=== PATIENT | female | born 1985 | race Caucasian/White ===

== ENCOUNTER 2016-08-27 16:45 | Inpatient (IN) | payer OTHER ==
--- NOTE | ~2016-08-27 | DS ---
Unit #: [id number] #: [id number] Patient: JACOB OKEEFE [id number] [facility] [address] [place] [address] [id number] MR#: [id number] NAME: JACOB OKEEFE ROOM: [facility] Age: 31 Sex: F Admission Date: 08/27/2016 : 1985 Discharge Date: Attending Physician: Heena Jenkins M.D. Primary Care Physician: Primary Care Physician No DISCHARGE SUMMARY IDENTIFYING DATA Ms. Okeefe is a 31-year-old single white female who is a resident of [place], [place] and was transferred to us from [facility] on a voluntary basis. DISCHARGE DIAGNOSES Psychiatric: Opioid dependence, moderate and acute withdrawals; benzodiazepine dependence, moderate and acute withdrawals; methamphetamine dependence, moderate. Medical: Hypothyroidism. Stressors: Moderate psychosocial stressors. HISTORY OF PRESENT ILLNESS Please see initial psychiatric evaluation for details. PAST PSYCHIATRIC HISTORY Please see initial psychiatric evaluation for details. PAST MEDICAL HISTORY Please see initial psychiatric evaluation for details. HOSPITAL COURSE The patient was admitted to the adult chemical dependency and psychiatric unit at [facility] abdoul Melissa and was oriented to the hospital environment. Routine p.r.n. medications were initiated, and she was started back on her home medications and detox protocol was initiated. She was noticed to be very withdrawn and seclusive to herself and was staying in her bed a lot and was having difficulty doing activities of daily living including her personal hygiene and as such, detox was maintained. When I met with the patient on 08/30/2016, she stated that she still has not been feeling good, was not comfortable leaving the hospital, and as such, it was decided that she will be kept in the hospital for the weekend and as such, medications were maintained and she slowly started showing a therapeutic response with improvement in depression and anxiety and was able to come out of the detox without any complications and as such, it was decided that she will be discharged home and will continue treatment on an outpatient basis. DISCHARGE MEDICATIONS Seroquel 50 mg at bedtime for mood disorder. DISCHARGE CONDITION Stable. Unit #: [id number] #: [id number] Patient: JACOB OKEEFE PROGNOSIS Fair. Dictated by... Heena Jenkins M.D. IAA/modl TD: 09/02/2016 06:32 JOB #: [id number] DISCHARGE SUMMARY Page 1 of 1 X Heena Jenkins MD DISCHARGE SUMMARY
--- NOTE | ~2016-08-27 | PN ---
Unit #: [id number] #: [id number] Patient: JACOB OKEEFE [id number] [facility] [address] [place] [address] [id number] I MR#: [id number] NAME: JACOB OKEEFE ROOM: [facility] Age: 31 Sex: F Admission Date: 08/27/2016 : 1985 Attending Physician: Heena Jenkins M.D. Admitting Physician: Heena Jenkins M.D. Primary Care Physician: Primary Care Physician Kassandra LEVI NOTES DATE OF SERVICE 09/01/2016 DISCUSSION Ms. Okeefe is a 31-year-old white female who was seen today. Chart was reviewed and case was discussed with the staff who reports the patient has been anxious, withdrawn, and has been complaining of significant anxiety and as such p.r.n. Vistaril had to be initiated. Meanwhile, she has been cooperative with treatment recommendations and has been taking the medications and tolerating them fairly well. MENTAL STATUS EXAMINATION Young white female who is casually dressed with fair personal hygiene, appears to be in no acute distress or discomfort. The patient was awake and alert with intact orientation. Her mood is anxious with congruent affect. She denies any suicidal or homicidal ideation. Her insight and judgment remain slightly impaired. TREATMENT PLAN 1. We will continue her on her current treatment protocol. We will monitor her response to the medications and make further adjustments as needed. 2. We will continue to follow up. Dictated by... Heena Jenkins M.D. IAA/bzg TD: 09/02/2016 05:21 JOB #: [id number] Unit #: [id number] #: [id number] Patient: JACOB OKEEFE PROGRESS NOTES Page 1 of 1 X Heena Jenkins MD PROGRESS NOTE
--- NOTE | ~2016-08-27 | PN ---
Unit #: [id number] #: [id number] Patient: JACOB BASS [id number] [facility] [address] [place] [address] [id number] I MR#: [id number] NAME: JACOB BASS ROOM: [facility] Age: 31 Sex: F Admission Date: 08/27/2016 : 1985 Attending Physician: Heena Jenkins M.D. Admitting Physician: Heena Jenkins M.D. Primary Care Physician: Primary Care Physician Kassandra ÁCRDENAS PROGRESS NOTES DATE 08/30/2016 DISCUSSION Ms. Bass is a 31-year-old white female who was seen today and chart was reviewed and case was discussed with the staff. She has been anxious, withdrawn and rather seclusive to herself. Meanwhile, she has been cooperative with treatment recommendations and has been taking medications and tolerating them fairly well with no reported side effects. MENTAL STATUS EXAMINATION Young white female who was casually dressed with fair personal hygiene and appears to be in no acute distress or discomfort. She was awake and alert on interaction with intact orientation. Her mood was anxious with congruent affect. Her speech is slow and goal-directed. She denies any suicidal or homicidal ideations and also denies any auditory or visual hallucinations. Her insight and judgement remains slightly impaired. TREATMENT PLAN 1. Will continue on current medications and treatment protocol. Will monitor her response to the medications and make further adjustments as needed. 2. Will continue to follow up. Dictated by... Claudia Stoner/trisha TD: 08/30/2016 19:39 JOB #: [id number] Unit #: [id number] #: [id number] Patient: JACOB BASS PROGRESS NOTES Page 1 of 1 X Heena Jenkins MD X PROGRESS NOTE
--- NOTE | ~2016-08-27 | PN ---
Unit #: [id number] #: [id number] Patient: JACOB BASS [id number] [facility] [address] [place] [address] [id number] MR#: [id number] NAME: JACOB BASS ROOM: [facility] Age: 31 Sex: F Admission Date: 08/27/2016 : 1985 Attending Physician: Heena Jenkins M.D. Admitting Physician: Heena Jenkins M.D. Primary Care Physician: Primary Care Physician Kassandra LEVI NOTES DATE OF SERVICE 08/29/2016 DISCUSSION Ms. Bass is a 31-year-old white female with substance abuse and mood disorder who was seen today. Chart was reviewed and case was discussed with the staff. She has been doing fairly well and was rather comfortable in her bed and stated that she feels her detox is going smooth, that she has been taking the medications and tolerating them fairly well without any complications. She stated that she would like her nicotine patch to be increased. She stated that she was smoking up to 2 packs of cigarettes (1) __ currently at 14 mg of nicotine patch a day. MENTAL STATUS EXAMINATION Young white female who is casually dressed with fair personal hygiene, appears to be in no acute distress or discomfort. She was awake and alert on interaction with intact orientation. Her mood is anxious with congruent affect. She denies any suicidal or homicidal ideations and also denies any auditory or visual hallucinations. Her insight and judgment remain slightly impaired. TREATMENT PLAN 1. We will continue her on her current medications and treatment protocol. We will monitor her response to the medications and make further adjustments as needed. 2. We will continue to follow up. Dictated by... Claudia Stoner/elena TD: 08/29/2016 07:35 JOB #: [id number] Unit #: [id number] #: [id number] Patient: JACOB BASS PROGRESS NOTES Page 1 of 1 X Heena Jenkins MD PROGRESS NOTE
--- NOTE | ~2016-08-27 | PA ---
Unit #: [id number] #: [id number] Patient: JACOB OKEEFE [id number] [facility] [address] [place] [address] [id number] MR#: [id number] NAME: JACOB OKEEFE ROOM: [facility] Age: 31 Sex: F Admission Date: 08/27/2016 : 1985 Date of Assessment: Attending Physician: Heena Jenkins M.D. Admitting Physician: Heena Jenkins M.D. Primary Care Physician: Primary Care Physician No PSYCHIATRIC ASSESSMENT DATE OF SERVICE 08/28/2016. IDENTIFYING DATA Ms. Okeefe is a 31-year-old single white female, who is a resident of [place], [place], and was transferred to us from [facility] on a voluntary basis. CHIEF COMPLAINT "I want help to get off drugs." HISTORY OF PRESENT ILLNESS Ms. Okeefe is a 31-year-old white female with history of substance abuse and dependence, who was self-referred to the hospital. Reports that she needs help in order to get off drugs and she has been using everything and reports her drug of choice is methamphetamine and that she is here with her boyfriend who also wants to get help and the patient does report increasing depression, anxiety, poor social support system, psychomotor retardation, and reports that she feels low all the time and reports hopelessness and helplessness about her current situation. The patient's boyfriend reports that she talked about dying after the of her son and was given medication for depression and she stopped taking it because it did not get right. The patient denies any current suicidal ideations, intent, or plan. Her COWS score was 15, indicating significant opioid detox and as such, recommendation for inpatient level of care for safety and stabilization was made. SUBSTANCE ABUSE HISTORY The patient reports history of experimentation with alcohol, cannabis, opioids, methamphetamine, and benzodiazepines. Reports currently she has been using one and half g of methamphetamine, 1 to 2 g of opioids a day and has been using at that rate for few years. PAST PSYCHIATRIC HISTORY The patient has not had any prior inpatient or outpatient psychiatric treatment. Review of the medical records indicate currently she is not active in treatment program, is not seeing a psychiatrist, and is not taking any psychotropic medications. PAST MEDICAL HISTORY The patient's medical history is significant for hypothyroidism. ALLERGIES Unit #: [id number] #: [id number] Patient: JACOB OKEEFE No known medication allergies. PERSONAL AND SOCIAL HISTORY A 31-year-old white female, who reports that she lives at home with her boyfriend and her 3 daughters and has fairly decent social support system. MENTAL STATUS EXAMINATION Young white female who was casually dressed with fair personal hygiene, appears to be in no acute distress or discomfort. She was awake and alert on interaction with intact orientation to time, place, and person. Her mood was anxious and depressed with a congruent affect. Her speech was slow and restricted in content. Her thought processes were disorganized with some looseness of associations. She denies any suicidal or homicidal ideations and also denies any auditory or visual hallucinations. Her insight and judgment remain significantly impaired. DIAGNOSTIC IMPRESSION Psychiatric: Opioid dependence, moderate and acute withdrawals; benzodiazepine dependence, moderate and acute withdrawals; methamphetamine dependence, moderate. Medical: Hypothyroidism. Stressors: Moderate psychosocial stressors. TREATMENT PLAN 1. The patient has presented with a history of substance abuse and mood disorder, and has been decompensating and will need inpatient hospitalization for detoxification, safety, and stabilization. We will start her back on her home medications and detox protocol was initiated as well. 2. Supportive therapy was provided to the patient. 3. Safe, structured, and nourishing environment will be provided. ESTIMATED LENGTH OF STAY 5 to 7 days. ABILITY TO HELP SELF Limited. WILLINGNESS TO HELP SELF The patient appears to be willing to help self. STRENGTHS 1. Communicative. 2. Cooperative. PROBLEMS 1. Chronic dysphoric symptoms. 2. Chronic chemical dependency. 3. Poor social support system. DISCHARGE CRITERIA This will be contingent upon the patient's ability to go through detox without having any significant withdrawal symptoms as well as her ability to stay safe to herself, particularly after discharge from the hospital. Dictated by... Heena Jenkins M.D. Unit #: [id number] #: [id number] Patient: JACOB OKEEFE IAA/modl TD: 08/28/2016 06:44 JOB #: [id number] PSYCHIATRIC ASSESSMENT Page 1 of 1 X Heena Jenkins A MD X PSYCHIATRIC ASSESSMENT
--- NOTE | ~2016-08-27 | HP ---
Unit #: [id number] #: [id number] Patient: KATJA OKEEFE [id number] [place] [address] [id number] MR#: [id number] NAME: KATJA OKEEFE ROOM: [facility] Age: 31 Sex: F Admission Date: 08/27/2016 : 1985 Attending Physician: Heena Jenkins M.D. Admitting Physician: Heena Jenkins M.D. Primary Care Physician: Primary Care Physician No HISTORY AND PHYSICAL HISTORY OF PRESENT ILLNESS Katja is a 31 year old admitted to [facility] because of her polysubstance abuse which includes methamphetamine, opioids and benzodiazepines. PAST MEDICAL HISTORY 1. Long history of poly-illicit substance abuse. 2. Secondary hypothyroidism. PAST SURGICAL HISTORY Total thyroidectomy. ALLERGIES No known drug allergies. SOCIAL HISTORY Smokes 1 pack per day. Drinks alcohol rarely. Admits to history of poly-illicit substance abuse. FAMILY HISTORY Medically noncontributory. REVIEW OF SYSTEMS CONSTITUTIONAL: No fever or chills. HEENT: Denies any sore throat, ear pain or runny nose. CARDIOVASCULAR: Denies chest pain, irregular heart rhythm or palpitations. CHEST: Denies shortness of breath or cough. No hemoptysis. GASTROINTESTINAL: Denies nausea, vomiting, diarrhea or chronic constipation. ENDOCRINE: Denies history of increased thirst or urination. No recent significant weight loss or gain. GENITOURINARY: Denies dysuria, frequency, or hematuria. SKIN: Denies any rashes. HEMATOLOGIC: Denies history of increased bleeding or bruising. MUSCULOSKELETAL: Denies any hot, swollen joints. No generalized muscle pain. NEUROLOGIC: Denies problems with vision or speech. No frequent, severe headaches. No numbness, tingling or weakness in any extremities. Denies loss of bladder or bowel control. CURRENT MEDICATIONS 1. Detox protocol. 2. Synthroid 0.05 mg daily. Unit #: [id number] #: [id number] Patient: KATJA OKEEFE PHYSICAL EXAMINATION GENERAL: Alert, well-nourished, in no apparent distress. VITAL SIGNS: Blood pressure 100/60, heart rate 70, respirations 16, temperature 98.6. WEIGHT: 175. HEIGHT: 5 feet 5 inches. SKIN: Warm and dry without rash or lesion. HEENT: Normocephalic. TMs not viewed. Oral and nasal passages clear. Conjunctivae clear. PERRLA. EOMs intact. NECK: Supple without lymphadenopathy or thyromegaly. HEART: Regular rate and rhythm without murmur. LUNGS: Clear. ABDOMEN: Soft, nontender. : Not done. EXTREMITIES: No evidence of cyanosis, clubbing or edema. Moves all without focal deficit. NEUROLOGICAL: Grossly within normal limits. Cranial Nerves: II: Visual canela are intact. III, IV AND : Extraocular movements are intact. Pupils are equal, round and reactive to light. V: Facial sensation is grossly normal. VII: Facial movements and expression are normal. VIII: Auditory acuity grossly intact. IX, X: Uvula is midline. Phonation is normal. XI: Patient shrugs shoulders and turns head normally. XII: Tongue protrudes in the midline. Sensory and Motor Function: Sensory and motor sensation is grossly normal. Motor: moves all extremities well. Coordination: Gait is normal. Deep Tendon Reflexes: Intact. IMPRESSION Psychiatric admission. RECOMMENDATIONS PSYCHIATRIC: Per psychiatrist. MEDICAL: See no contraindications to participate in facility's activities. MEDICAL PROGNOSIS Good. MEDICAL CONDITION Stable. Dictated by... Laura Arzate P.A.-C. for Claudia Kerr/trisha TD: 08/28/2016 19:52 JOB #: [id number] Unit #: [id number] #: [id number] Patient: KATJA OKEEFE HISTORY AND PHYSICAL Page 1 of 1 X Laura Arzate HISTORY AND PHYSICAL
--- NOTE | ~2016-08-27 | PN ---
Unit #: [id number] #: [id number] Patient: JACOB BASS [id number] [facility] [address] [place] [address] [id number] MR#: [id number] NAME: JACOB BASS ROOM: [facility] Age: 31 Sex: F Admission Date: 08/27/2016 : 1985 Attending Physician: Heena Jenkins M.D. Admitting Physician: Heena Jenkins M.D. Primary Care Physician: Primary Care Physician Kassandra CÁRDENAS PROGRESS NOTES DATE OF SERVICE: 08/31/2016 SUBJECTIVE Ms. Bass is a 31-year-old white female with substance abuse and mood disorder, who was seen today and chart was reviewed, and case was discussed with the staff. She was anxious, withdrawn, depressed, and rather seclusive to herself and she was lying in the bed and reports feeling slightly better. Meanwhile, she has been cooperative with treatment recommendations and has been taking the medications and tolerating them fairly with no reported side effects. MENTAL STATUS EXAMINATION Young white female who was casually dressed with fair personal hygiene, appears to be in no acute distress or discomfort. She was awake and alert on interaction with intact orientation. Her mood was anxious with a congruent affect. She denies any suicidal or homicidal ideations. Her insight and judgment remain slightly impaired. TREATMENT PLAN 1. We will continue on her current medications and treatment protocol. We will monitor her response to medications and make further adjustments as needed. 2. We will continue to follow up. Dictated by... Claudia Stoner/harman TD: 08/31/2016 13:20 JOB #: [id number] Unit #: [id number] #: [id number] Patient: JACOB BASS PROGRESS NOTES Page 1 of 1 X Heena Jenkins MD X PROGRESS NOTE
== END 2016-09-02 10:25 | DRG 897 ==
LOC: P1E 22:08
PROC: HZ2ZZZZ Detoxification Services for Substance Abuse Treatment (ICD-10-PCS; principal; 2016-08-27)
DX: F11.23 Opioid dependence with withdrawal (principal); F15.20 Other stimulant dependence, uncomplicated; F13.239 Sedative, hypnotic or anxiolytic dependence with withdrawal, unspecified; E03.9 Hypothyroidism, unspecified; F17.210 Nicotine dependence, cigarettes, uncomplicated; F39 Unspecified mood [affective] disorder
CPT/HCPCS: 86592